=== PATIENT | female | born 1950 | race Caucasian/White ===

== ENCOUNTER 2016-09-14 14:26 | Emergency (ER) | payer MEDICARE, SELFPAY ==
[2016-09-14] MEDS ORDERED: Famotidine In NaCl 20 mg/50 ml Premix Bag ONE (14:49)
[2016-09-14] MEDS ORDERED: Ondansetron HCl/PF 4 MG/2 ML Vial ONE (14:49)
[2016-09-14 15:10] LABS: #Basophils 0.1 thou/uL (0.0-0.2); #Eosinphils 0.6 thou/uL (0.0-0.7); #Lymphocytes 2.3 thou/uL (1.20-3.40); #Monocytes 0.7 thou/uL (0.11-0.59); #Neutrophils 3.3 thou/uL (1.40-6.50); %Basophils 0.9 % (0.0-1.0); %Eosinophils 8.6 % (0.0-10.0); %Lymphocytes 33.1 % (21.0-51.0); %Monocytes 9.5 % (0.0-10.0); Hemoglobin 12.5 g/dL (12.0-16.0); Mean Corpuscular HGB CONC 33.2 g/dL (32.0-36.0); Mean Corpuscular Hemoglobin 32.3 pg (27.0-31.0); Mean Corpuscular Volume 97.4 fl (81.0-99.0); Mean Platelet Volume 7.2 fL (7.4-10.4); Platelet Count 258 thou/uL (130-400); RBC Distribution Width 12.9 % (11.5-14.5); Red Blood Cell (RBC) Count 3.87 mill/uL (4.20-5.40); White Blood Cell (WBC) Count 6.9 thou/uL (4.8-10.8)
[2016-09-14 15:30] LABS: CKMB 6.2 ng/mL (0-6.6); Troponin I Less than 0.010 ng/mL (< 0.028)
[2016-09-14 15:31] LABS: ALT (SGPT) 26 U/L (8-55); AST (SGOT) 31 U/L (5-34); Albumin 3.9 g/dL (3.4-4.8); Alkaline Phosphatase 77 U/L (40-150); Anion Gap 13 mmol/L (10-20); BUN (Urea Nitrogen) 13 mg/dL (9.8-20.1); Bilirubin, Total 0.2 mg/dL (0.2-1.2); Calc. Creatinine Clearance 0 mL/min (70-130); Carbon Dioxide 29 mmol/L (23-31); Chloride 105 mmol/L (98-107); Estimated GFR-MDRD 69; Globulin 2.9 g/dL (2.4-3.5); Glucose 115 mg/dL (80-115); Lipase 45 U/L (8-78); Potassium 3.6 mmol/L (3.5-5.1); Protein, Total 6.8 g/dL (6.0-8.3); Sodium 143 mmol/L (136-145)
[2016-09-14 15:55] LABS: Bilirubin Negative (Negative); Blood, Urine Negative (Negative); Clarity Clear (Clear); Glucose, Urine (Dipstick) Negative (Negative); Leukocyte Negative (Negative); Nitrite Negative (Negative); Protein, Urine (Dipstick) Negative (Neg-Trace)
== END 2016-09-14 16:22 | disposition home or self-care (01) ==
LOC: BURERS 14:26
DX: K29.00 Acute gastritis without bleeding (principal)
CPT/HCPCS: 80053; 81003; 82553; 83690; 84484; 85025; 96361; 96365; 96375; J2405

== ENCOUNTER 2018-01-27 14:33 | Emergency (ER) | payer MEDICARE ==
[2018-01-27] MEDS ORDERED: HYDROcodone/Acetaminophen 10/325 mg Tablet ONE (15:00)
[2018-01-27] MEDS ORDERED: Bupivacaine 0.5% 10 ML VIAL ONE (15:26)
--- NOTE | 2018-01-27 16:41 | RAD ---
LEFT WRIST THREE VIEWS: 01/27/2018 FINDINGS: An impacted fracture of the distal radius is present, with slight comminution of fragments. The dist al ulna appears intact. There is minimal angulation of the fracture. The carpal bones appear intact . IMPRESSION: Impacted fracture of the distal radius. POS: HOME
== END 2018-01-27 16:07 | disposition home or self-care (01) ==
LOC: BURERS 14:33
DX: S52.502A Unspecified fracture of the lower end of left radius, initial encounter for closed fracture (principal); W19.XXXA Unspecified fall, initial encounter
CPT/HCPCS: 25605; J3490

== ENCOUNTER → 2018-10-29 | Emergency (ER) | payer MEDICARE ==
[~2018-10-29] MED LIST: Fentanyl 100 MCG/2 ML VIAL ONE; Glycopyrrolate 0.4 MG/ 2 ML VIAL ONE; Lidocaine Viscous Sol 2% 15 ml UD Cup ONE; Mag-Al Plus 1200 MG/1200 MG/120 MG/30 ML UDCUP ONE; Ondansetron PF 4 MG/2 ML Vial ONE
[2018-10-29 20:48] LABS: Bilirubin Negative (Negative); Blood, Urine Trace (Negative); Clarity Clear (Clear); Glucose, Urine (Dipstick) Negative (Negative); Leukocyte Negative (Negative); Nitrite Negative (Negative); Protein, Urine (Dipstick) Trace mg/dL (Neg-Trace); Urobilinogen 0.2 mg/dL (Less than 2)
[2018-10-29 20:53] LABS: #Basophils 0.1 thou/uL (0.0-0.2); #Eosinphils 0.1 thou/uL (0.0-0.7); #Lymphocytes 3.1 thou/uL (1.20-3.40); #Monocytes 0.5 thou/uL (0.11-0.59); #Neutrophils 4.2 thou/uL (1.40-6.50); %Basophils 1.3 % (0.0-1.0); %Eosinophils 1.4 % (0.0-10.0); %Lymphocytes 38.2 % (21.0-51.0); %Monocytes 6.8 % (0.0-10.0); %Neutrophils 52.3 % (42.0-75.0); Hemoglobin 13.3 g/dL (12.0-16.0); Mean Corpuscular HGB CONC 32.4 g/dL (32.0-36.0); Mean Corpuscular Hemoglobin 31.5 pg (27.0-31.0); Mean Corpuscular Volume 97.2 fL (78.0-98.0); Mean Platelet Volume 6.6 fL (7.4-10.4); Platelet Count 296 thou/uL (130-400); RBC Distribution Width 12.6 % (11.5-14.5); Red Blood Cell (RBC) Count 4.22 mill/uL (4.20-5.40)
[2018-10-29 20:53] LABS: Bacteria/HPF None Seen HPF (None Seen); Broad Cast None Seen LPF (None Seen); Calcium Oxalate Crystals None Seen HPF (None Seen); Cellular Cast None Seen LPF (None Seen); Epithelial Cast None Seen LPF (None Seen); Fatty Cast None Seen LPF (None Seen); Mucous/LPF None Seen LPF (<2+); Other Casts None Seen LPF (None Seen); Oval Fat Bodies/HPF None Seen HPF (None Seen); RBC/HPF 0-3 HPF (0-3); Red Blood Cell Cast None Seen LPF (None Seen); Renal Epithelial None Seen HPF (None Seen); Sperm/HPF None Seen HPF (None Seen); Squamous Epithelial None Seen HPF (0-3); Transitional Epithelial None Seen HPF (None Seen); Trichomonas/HPF None Seen HPF (None Seen); Triple Phosphate Crystal None Seen HPF (None Seen); Unclassified Crystals None Seen HPF (None Seen); WBC/HPF None Seen HPF (0-3); Waxy Cast None Seen LPF (None Seen); White Blood Cell Cast None Seen LPF (None Seen); Yeast-Budding None Seen HPF (None Seen); Yeast-Hyphae None Seen HPF (None Seen)
[2018-10-29 22:21] LABS: ALT (SGPT) 33 U/L (8-55); AST (SGOT) 43 U/L (5-34); Albumin 4.3 g/dL (3.4-4.8); Alkaline Phosphatase 77 U/L (40-150); Anion Gap 15 mmol/L (10-20); BUN (Urea Nitrogen) 15 mg/dL (9.8-20.1); Bilirubin, Total 0.7 mg/dL (0.2-1.2); Calc. Creatinine Clearance 0 mL/min (70-130); Calcium 9.6 mg/dL (7.8-10.44); Carbon Dioxide 24 mmol/L (23-31); Chloride 103 mmol/L (98-107); Estimated GFR-MDRD 70; Globulin 3.1 g/dL (2.4-3.5); Glucose 120 mg/dL (80-115); Lipase 376 U/L (8-78); Potassium 3.2 mmol/L (3.5-5.1); Protein, Total 7.4 g/dL (6.0-8.3); Sodium 139 mmol/L (136-145)
== END ==
LOC: BURERS 20:13
DX: K85.90 Acute pancreatitis without necrosis or infection, unspecified (principal)
CPT/HCPCS: 80053; 81003; 81015; 83690; 84484; 85025; 94760; 96361; 96365; 96367; 96375; 96376; J2405; J3010

== ENCOUNTER 2019-05-26 10:37 | Emergency (ER) | payer MEDICARE | END 2019-05-26 11:23 | disposition home or self-care (01) | LOC: BURERS 10:37 | DX: J30.9 Allergic rhinitis, unspecified (principal); G30.9 Alzheimer's disease, unspecified; E78.5 Hyperlipidemia, unspecified | CPT/HCPCS: 99283 ==

== ENCOUNTER 2019-07-22 09:53 | Emergency (ER) | payer MEDICARE, OTHER ==
[2019-07-22] MEDS ORDERED: Ketorolac Tromethamine 30 MG/ML VIAL ONE (10:21)
[2019-07-22] MEDS ORDERED: Famotidine In NaCl 20 mg/50 ml Premix Bag ONE (10:21)
[2019-07-22] MEDS ORDERED: Ondansetron PF 4 MG/2 ML Vial ONE (10:21)
[2019-07-22] MEDS ORDERED: Mag-Al Plus 1200 MG/1200 MG/120 MG/30 ML UDCUP ONE (10:27)
[2019-07-22] MEDS ORDERED: Lidocaine Viscous Sol 2% 15 ml UD Cup ONE (10:27)
[2019-07-22 10:31] LABS: #Basophils 0.1 thou/uL (0.0-0.2); #Eosinphils 0.1 thou/uL (0.0-0.7); #Lymphocytes 2.1 thou/uL (1.20-3.40); #Monocytes 0.4 thou/uL (0.11-0.59); #Neutrophils 4.6 thou/uL (1.40-6.50); %Basophils 1.1 % (0.0-1.0); %Eosinophils 1.2 % (0.0-10.0); %Lymphocytes 29.2 % (21.0-51.0); %Monocytes 5.1 % (0.0-10.0); %Neutrophils 63.5 % (42.0-75.0); Hemoglobin 12.8 g/dL (12.0-16.0); Mean Corpuscular HGB CONC 31.4 g/dL (32.0-36.0); Mean Corpuscular Hemoglobin 30.7 pg (27.0-31.0); Mean Corpuscular Volume 97.5 fL (78.0-98.0); Mean Platelet Volume 7.1 fL (7.4-10.4); Platelet Count 269 thou/uL (130-400); RBC Distribution Width 13.5 % (11.5-14.5); Red Blood Cell (RBC) Count 4.17 mill/uL (4.20-5.40); White Blood Cell (WBC) Count 7.3 thou/uL (4.8-10.8)
[2019-07-22 10:45] LABS: ALT (SGPT) 20 U/L (8-55); AST (SGOT) 23 U/L (5-34); Albumin 4.5 g/dL (3.4-4.8); Alkaline Phosphatase 93 U/L (40-110); Anion Gap 17 mmol/L (10-20); BUN (Urea Nitrogen) 14 mg/dL (9.8-20.1); Bilirubin, Total 0.5 mg/dL (0.2-1.2); Calc. Creatinine Clearance 0 mL/min (70-130); Calcium 9.8 mg/dL (7.8-10.44); Carbon Dioxide 24 mmol/L (23-31); Chloride 101 mmol/L (98-107); Estimated GFR-MDRD 68; Globulin 3.3 g/dL (2.4-3.5); Glucose 129 mg/dL (80-115); Lipase 65 U/L (8-78); Potassium 3.9 mmol/L (3.5-5.1); Protein, Total 7.8 g/dL (6.0-8.3); Sodium 138 mmol/L (136-145)
--- NOTE | 2019-07-22 10:54 | CT ---
CT OF THE BRAIN WITHOUT CONTRAST: DATE: 07/22/2019. FINDINGS: A NONCONTRAST ct WAS DONE FOR EVALUATION OF HEADACHE. No prior films were available for comparison. The ventricles are normal in size in size for age. Several areas of patchy hypolucency are seen in t he deep white matter suggestive of chronic microvascular ischemic change. An acute tiny infarct was missed against this background. There are no findings of a territorial stroke. Basal ganglia calcif ications are prominent in this patient. There is no sign of mass, edema, or bleeding. The visible p aranasal sinuses and mastoid air cells are clear. IMPRESSION: Chronic ischemic changes, but no acute intracranial findings. Preliminary report called to Dr. Wallace at 1033 on 07/22/2019. CODE CR POS: HOME
== END 2019-07-22 11:06 | disposition home or self-care (01) ==
LOC: BURERS 09:53
DX: R11.2 Nausea with vomiting, unspecified (principal); R51 Headache; I10 Essential (primary) hypertension; E78.5 Hyperlipidemia, unspecified; K21.9 Gastro-esophageal reflux disease without esophagitis; G30.9 Alzheimer's disease, unspecified; F02.80 Dementia in other diseases classified elsewhere, unspecified severity, without behavioral disturbance, psychotic disturbance, mood disturbance, and anxiety
CPT/HCPCS: 70450; 80053; 83605; 83690; 84484; 85025; 93005; 96374; 96375; J1885; J2405

== ENCOUNTER 2019-07-28 14:32 | Emergency (ER) | payer MEDICARE, OTHER ==
[2019-07-28] MEDS ORDERED: Lidocaine 1% PF 5 ML VIAL ONE (14:53)
--- NOTE | 2019-07-28 15:58 | RAD ---
RIGHT FOREARM THREE VIEWS: 07/28/19 A laceration is seen at the junction of the middle and distal thirds of the forearm, medial side. Whi le there are a few tiny specks seen around the area on the film, these are largely visible elsewhere as well, indicating that they are most likely film artifact. The third view of the series taken from the side shows absolutely no signs of foreign body at the laceration site. This further reinforces th at the findings on the other two films are likely to be film artifact. IMPRESSION: No opaque foreign body of substantial size seen. Some foreign bodies can be invisible on plain radiog raphs. At the very most, there might be a little bit of contamination of the wound from specks of gla ss, but no large piece is visible. Film artifact most likely explains what is seen on two of the view s. POS: HOME
== END 2019-07-28 15:40 | disposition home or self-care (01) ==
LOC: BURERS 14:32
DX: S51.811A Laceration without foreign body of right forearm, initial encounter (principal); I10 Essential (primary) hypertension; E78.5 Hyperlipidemia, unspecified; K21.9 Gastro-esophageal reflux disease without esophagitis; G30.9 Alzheimer's disease, unspecified; F02.80 Dementia in other diseases classified elsewhere, unspecified severity, without behavioral disturbance, psychotic disturbance, mood disturbance, and anxiety; W25.XXXA Contact with sharp glass, initial encounter
CPT/HCPCS: 12001; 73090; 99283; J2001

== ENCOUNTER 2019-09-10 17:41 | Emergency (ER) | payer MEDICARE, OTHER ==
[2019-09-10] MEDS ORDERED: Ondansetron PF 4 MG/2 ML Vial ONE (18:28)
[2019-09-10] MEDS ORDERED: Nitroglycerin 0.4 MG TAB 1 EACH ONE (18:54)
[2019-09-10 19:00] LABS: #Basophils 0.1 thou/uL (0.0-0.2); #Eosinphils 0.3 thou/uL (0.0-0.7); #Lymphocytes 2.2 thou/uL (1.20-3.40); #Monocytes 0.5 thou/uL (0.11-0.59); #Neutrophils 4.2 thou/uL (1.40-6.50); %Basophils 1.4 % (0.0-1.0); %Eosinophils 4.3 % (0.0-10.0); %Lymphocytes 30.5 % (21.0-51.0); %Monocytes 6.5 % (0.0-10.0); %Neutrophils 57.3 % (42.0-75.0); Hemoglobin 12.1 g/dL (12.0-16.0); Mean Corpuscular HGB CONC 30.5 g/dL (32.0-36.0); Mean Corpuscular Hemoglobin 30.3 pg (27.0-31.0); Mean Corpuscular Volume 99.5 fL (78.0-98.0); Mean Platelet Volume 7.5 fL (7.4-10.4); Platelet Count 280 thou/uL (130-400); RBC Distribution Width 13.2 % (11.5-14.5); Red Blood Cell (RBC) Count 3.99 mill/uL (4.20-5.40); White Blood Cell (WBC) Count 7.3 thou/uL (4.8-10.8)
[2019-09-10] MEDS ORDERED: Sodium Chloride 0.9% 100 ML ONE (19:05)
[2019-09-10] MEDS ORDERED: cefTRIAXone\\ROCEPHIN 2 GM VIAL ONE (19:05)
[2019-09-10] MEDS ORDERED: Azithromycin 500 MG VIAL ONE (19:05)
[2019-09-10] MEDS ORDERED: Aspirin Chewable 81 MG TAB ONE (19:14)
[2019-09-10 19:15] LABS: Bilirubin Small (Negative); Blood, Urine Negative (Negative); Clarity Clear (Clear); Glucose, Urine (Dipstick) Negative (Negative); Leukocyte Trace (Negative); Nitrite Negative (Negative); Protein, Urine (Dipstick) Negative (Neg-Trace); Urobilinogen 0.2 mg/dL (Less than 2)
[2019-09-10 19:17] LABS: Base Excess-Venous 1.2 mmol/L (-2.0 to 3.0); Bicarbonate (HCO3v) 27.6 mmol/L (22.0-28.0); CO2 Tension (PvCO2) 50.1 mmHg (40.0-50.0); Calcium, Ionized 1.19 mmol/L (See Comments:); Chloride 102 mmol/L (98-107); Hemoglobin - Calc 12.9 g/dL (12.0-16.0); Potassium 3.2 mmol/L (3.5-5.1); Sodium 142 mmol/L (138-145); T. Carbon Dioxide 29.1 mmol/L (22.0-28.0); vO2 Saturation-calc 78.1 % (60.0-85.0)
[2019-09-10 19:49] LABS: Bacteria/HPF Rare-Few HPF (None Seen); RBC/HPF 0-3 HPF (0-3); Squamous Epithelial 0-3 HPF (0-3); WBC/HPF 0-3 HPF (0-3)
--- NOTE | 2019-09-10 20:33 | RAD ---
PORTABLE CHEST: Date: 09-10-2019 An AP portable film at 1851 is compared with the prior study dated 11-17-15. FINDINGS: The film is centered somewhat low. This portable study at 1851 shows some haziness in the lung bases, but it is not clear if the patient has taken a deep breath. There are no effusions. Heart size is no rmal. There is no vascular congestion. See follow up study. IMPRESSION: Basilar haziness, but possibly an expiratory film. POS: HOME
--- NOTE | 2019-09-11 07:27 | RAD ---
PORTABLE CHEST: Date: 09-10-2019 A follow up film at 1913 shows the lungs are clear. The left basilar haziness seen before has disappe ared with a better degree of inspiration. There is still a little increase in markings just below the right hilum, but not enough to confidently diagnose an infiltrate as of yet. There are no effusions. The upper lobes are clear. The heart is normal in size. IMPRESSION: No definitive acute finding. POS: HOME
[2019-09-11 10:21] LABS: SARS-CoV-2 MS2 Positive; SARS-CoV-2 N Gene Negative; SARS-CoV-2 S Gene Negative; SARS-CoV-2 orf1ab Negative
== END 2019-09-10 19:47 | disposition short-term general hospital (02) ==
LOC: BURERS 17:41
DX: R07.89 Other chest pain (principal); J18.9 Pneumonia, unspecified organism; R11.2 Nausea with vomiting, unspecified; R19.7 Diarrhea, unspecified; G30.9 Alzheimer's disease, unspecified; F02.80 Dementia in other diseases classified elsewhere, unspecified severity, without behavioral disturbance, psychotic disturbance, mood disturbance, and anxiety; E78.5 Hyperlipidemia, unspecified; I10 Essential (primary) hypertension; K21.9 Gastro-esophageal reflux disease without esophagitis; Z79.899 Other long term (current) drug therapy; Z20.828 Contact with and (suspected) exposure to other viral communicable diseases
CPT/HCPCS: 71045; 82330; 82435; 82803; 84132; 84295; 84484; 85014; 85025; 87040; 87086; 87804 ×2; 93005; 96361; 96365; 96374; 96375; 99285; U0003; 81003; 81015; 87635; J0456; J0696; J2405; J3490

== ENCOUNTER 2020-01-13 10:31 | Inpatient (IN) | payer MEDICARE, OTHER ==
[2020-01-13] MEDS ORDERED: Ondansetron PF 4 MG/2 ML Vial ONE (11:03)
[2020-01-13 11:04] LABS: #Basophils 0.1 thou/uL (0.0-0.2); #Eosinphils 0.1 thou/uL (0.0-0.7); #Monocytes 0.6 thou/uL (0.11-0.59); #Neutrophils 4.4 thou/uL (1.40-6.50); %Basophils 0.8 % (0.0-1.0); %Eosinophils 1.8 % (0.0-10.0); %Lymphocytes 27.8 % (21.0-51.0); %Monocytes 8.3 % (0.0-10.0); %Neutrophils 61.3 % (42.0-75.0); Hemoglobin 11.3 g/dL (12.0-16.0); Mean Corpuscular HGB CONC 30.3 g/dL (32.0-36.0); Mean Corpuscular Hemoglobin 30.9 pg (27.0-31.0); Mean Platelet Volume 6.7 fL (7.4-10.4); Platelet Count 246 thou/uL (130-400); RBC Distribution Width 13.7 % (11.5-14.5); Red Blood Cell (RBC) Count 3.65 mill/uL (4.20-5.40); White Blood Cell (WBC) Count 7.2 thou/uL (4.8-10.8)
[2020-01-13] MEDS ORDERED: Milk Of Magnesia 30 ML UDCUP ONE (11:04)
[2020-01-13] MEDS ORDERED: Lidocaine Viscous Sol 2% 15 ml UD Cup ONE (11:04)
[2020-01-13] MEDS ORDERED: Famotidine In NaCl 20 mg/50 ml Premix Bag ONE (11:04)
[2020-01-13 11:20] LABS: ALT (SGPT) 28 U/L (8-55); AST (SGOT) 16 U/L (5-34); Albumin 3.7 g/dL (3.4-4.8); Alkaline Phosphatase 61 U/L (40-110); Anion Gap 13 mmol/L (10-20); BUN (Urea Nitrogen) 12 mg/dL (9.8-20.1); Bilirubin, Total 0.6 mg/dL (0.2-1.2); Calc. Creatinine Clearance 0 mL/min (70-130); Carbon Dioxide 28 mmol/L (23-31); Chloride 104 mmol/L (98-107); Estimated GFR-MDRD 65; Globulin 2.4 g/dL (2.4-3.5); Glucose 121 mg/dL (80-115); Lipase 375 U/L (8-78); Potassium 3.1 mmol/L (3.5-5.1); Protein, Total 6.1 g/dL (6.0-8.3); Sodium 142 mmol/L (136-145)
[2020-01-13] MEDS ORDERED: Morphine 4 MG/ML VIAL ONE (11:48)
[2020-01-13] MEDS ORDERED: Potassium Chloride 20 MEQ/100 ML PREMIX BAG ONE (11:54)
[2020-01-13 12:36] LABS: Bilirubin Negative (Negative); Blood, Urine Negative (Negative); Clarity Clear (Clear); Glucose, Urine (Dipstick) Negative (Negative); Ketone, Urine Negative (Negative); Leukocyte Trace (Negative); Nitrite Negative (Negative); Protein, Urine (Dipstick) Negative (Neg-Trace); Specific Gravity, Urine 1.015 (1.005-1.030); Urobilinogen 0.2 mg/dL (Less than 2); pH, Urine 8.5 (5.0-9.0)
[2020-01-13] MEDS ORDERED: Iopamidol 370 76% 100 ML VIAL ONE (12:37)
[2020-01-13] MEDS ORDERED: Lisinopril 20 MG TAB ONE (12:38)
[2020-01-13 12:44] LABS: Bacteria/HPF Rare-Few HPF (None Seen); RBC/HPF None Seen HPF (0-3); Squamous Epithelial 0-3 HPF (0-3); WBC/HPF 0-3 HPF (0-3)
--- NOTE | 2020-01-13 12:51 | CT ---
CT ABDOMEN AND PELVIS WITH CONTRAST: 01/13/20 TECHNIQUE: A spiral CT of the abdomen and pelvis was done with IV contrast and compared with a prior study dated 10/30/2018. FINDINGS: The prior exam showed a mildly (3 mm) dilated pancreatic duct without obvious signs of mass or ductal calcification. Again seen on today's exam is dilation of the main pancreatic duct, but it has doubled in size, measu ring 6 to 7 mm wide today. The dilation is most prominent in the neck and head of the pancreas and re ines that way to its termination at the second part of the duodenum. No gross mass or intraductal ca lcification is seen as an explanation. The patient's common bile duct is visible and is normal in siz e, measuring 5 to 6 mm in width. It appears to enter the duodenum just superior to the pancreatic janet t. There is no intrahepatic ductal dilation. No stones are seen in the gallbladder, nor is there thic kening around the gallbladder. The liver, spleen, kidneys and abdominal aorta show no acute findings. There may be a minimal 8 mm no dule in the left adrenal gland, which, in retrospect, was present and has not changed at all over desiree e. Its current significance is doubtful. Regarding the pancreas, there really is not significant stre aking around it at the moment to allow a CT diagnosis of acute pancreatitis, though the patient's lab s may indicate otherwise. The bowel shows no dilation to suggest obstruction, nor is there worrisome wall thickening. The appen pat appears normal. Some loops of bowel have some fluid in them, such as the second part of the duode num and a few loops of jejunum but none are dilated. There is no free air or free fluid. An incidenta l finding is a rounded calcification just anterior to the cecum, which was present before. CT of the pelvis shows no adnexal masses, inflammatory changes or free fluid. IMPRESSION: 1. Dilation of the main pancreatic duct (6 to 7 mm wide) from its termination at the second part of t he duodenum through the head and neck. This represents roughly a doubling in width since the 2019 rubio dy. The cause for this dilation is not apparent on this scan. Endoscopic retrograde cholangiopancreat ography might be considered to look for any intraductal masses or pathology to explain the findings. 2. No evidence of dilation of the biliary system. The common bile duct appears to enter the duodenum separately from the main pancreatic duct and just above it. 3. Probable 8 mm left adrenal mass. Significance felt to be quite low at this point in time. See nick dutta. Findings discussed with Dr. Wallace at 1213 hours on 01/13/20. CODE CR POS: HOME
[2020-01-13] MEDS: Sodium Chloride 0.9% 1,000 ML IV SCH ×2 (13:30→21:27)
[2020-01-13] MEDS ORDERED: cloNIDine 0.1mg/24 Hour PATCH TD SCH ×2 (14:15→20:15)
[2020-01-13 14:36] VITALS: BMI 20.2
--- NOTE | 2020-01-13 16:08 | HP ---
CHIEF COMPLAINT: Abdominal pain. HISTORY OF PRESENT ILLNESS: The patient is an extremely pleasant 69-year-old female with a history of one episode of pancreatitis about a year ago. The patient reports that she was doing fine until approximately three days ago when she began having some increased abdominal discomfort mainly in the mid epigastric area with nausea, anorexia, and decreased appetite. She had one episode of emesis of clear fluid. No further emesis since then. She has been mainly drinking water in the last 36 hours, which she says slightly helped her symptoms. Because her symptoms continued to not improve, she presents to the emergency room for evaluation of abdominal pain. The patient reports no other significant abnormality. She has had some progressive left knee pain for which she uses a cane and a knee brace, which is not acute. The patient is extremely pleasant, but very poor historian. The findings from the previous episode of pancreatitis were determined from her past medical records. She did not report any previous episodes of pancreatitis. The patient denies any history of significant alcohol abuse or excessive alcohol use. She does have a history of hypercholesterolemia. Review of the chart records when her previous episode of pancreatitis, she had a dilated pancreatic duct. Apparently, she was evaluated on outpatient basis and may have had ultrasound-guided or ERCP with intraductal ultrasound, which apparently was normal per 's records, although they do not have obvious documentation of this. If this was done, it was not done the [facility] since we have no records. PAST MEDICAL HISTORY: Significant for: 1. Hypertension. 2. History of one episode of pancreatitis as reported in HPI. 3. History of Alzheimer disease. 4. History of hyperlipidemia. 5. History of peptic ulcer disease with gastroesophageal reflux disease. PAST SURGICAL HISTORY: No significant past surgical history. SOCIAL HISTORY: The patient denies alcohol use or drug use. No smoking history. She is from [facility]. She lives with her [place] many years. ALLERGIES: THE PATIENT REPORTS NO SIGNIFICANT ALLERGIES. MEDICATIONS: 1. Atorvastatin 20 mg daily. 2. Loratadine 10 mg daily. 3. Pantoprazole 40 mg daily. 4. Tramadol 50 mg q.12 hours p.r.n. pain. 5. Aricept 10 mg at bedtime. 6. Meloxicam 50 mg daily. 7. Lisinopril 10 mg daily. 8. Sertraline 25 mg daily. 9. Gabapentin 300 mg p.o. at bedtime. REVIEW OF SYSTEMS: The patient denies any URI-like symptoms. No recent visual changes. No significant weight loss or weight gain. The patient denies rashes. The patient reports no chest pain or shortness of breath. No fevers, chills, or night sweats. She does have nausea with abdominal pain as in HPI with one episode of emesis. The patient reports normal bowel movements. Her last bowel movement was two days ago. The patient denies dysuria, hematuria, or change in urinary frequency. The patient does report some increased hip discomfort and left knee pain for which she uses a cane. The patient also reports headache over the last few days. PHYSICAL EXAMINATION: VITAL SIGNS: Blood pressure was 192/102, respiratory rate was 16, and pulse was 82. The patient was afebrile. HEENT: Atraumatic and normocephalic. Extraocular movements are intact. Pupils are equal, round, and reactive to light and accommodations. Oropharynx, mucous membranes are moist. No exudate, discharge, or lesions. NECK: Supple. No mass palpated. No bruits auscultated. CHEST: Clear to auscultation bilaterally without rales or wheezes. HEART: Regular rate and rhythm without murmurs, rubs, or gallops. ABDOMEN: Soft. Hyperactive bowel sounds in all four quadrants. Tenderness in the mid and upper epigastrium to touch. There is no significant right upper quadrant tenderness and no lower quadrant tenderness as well. There is no CVA tenderness. EXTREMITIES: No edema was noted. No ulcers or lesions were noted. LABORATORY DATA: Labs were significant for CT scan of the abdomen and pelvis, which showed dilatation of main pancreatic duct 6 to 7 mm wide, which was twice the diameter of the previous pancreatic duct on CAT scan in a year ago. There was no obvious etiology for the dilatation. There was no evidence of dilatation of the biliary system, and there was a benign-appearing left adrenal mass 7 mm in size. Laboratory otherwise was significant for a CBC with a white count 7200 with hemoglobin and hematocrit of 11.3 and 37.2. Chemistry significant for potassium at 3.1, glucose of 121, and lipase of 375. Normal troponin of 0.017. Urinalysis showed trace leukocyte esterase only. ASSESSMENT AND PLAN: 1. Pancreatitis, recurrent. Exact etiology of the pancreatitis is unknown. The patient apparently had a workup a year ago. We will try to obtain records from [facility]. For now, we will make the patient n.p.o. We will give her IV morphine as needed for pain, plus IV pantoprazole. We will repeat lipase and amylase in the morning and continue IV fluids of normal saline. The patient was given 40 mEq of potassium chloride IV to the emergency room. We will continue to follow her potassium levels and will probably keep her on potassium IV. 2. Hypertension. Blood pressure is pretty elevated. She was given her lisinopril 20 mg routine dose in the emergency room. Since she is n.p.o., we will start her on a clonidine patch 0.1 and follow her blood pressure. 3. Hypercholesterolemia. This may be the cause of the patient's pancreatitis. We will hold her medications for now. 4. History of Alzheimer's with dementia. We will hold her Aricept. At this time, the patient is cooperative and will evaluate for any signs of risk for falls or sundowning. 5. Disposition. The patient will likely be in hospital for at least two midnights. She will be n.p.o. for at least 24 hours, likely longer and we will slowly advance her diet as tolerated. She will continue to need pain management and likely will need further workup as an outpatient basis for her recurrent pancreatitis. Job ID: [id number]
[2020-01-13] MEDS ORDERED: cloNIDine 0.1 MG TAB PO SCH (16:15)
[2020-01-13] MEDS: Morphine 4 MG/ML VIAL SLOW IVP PRN (17:59)
[2020-01-13] MEDS: Ondansetron PF 4 MG/2 ML Vial IVP PRN (19:05)
[2020-01-13] MEDS: Pantoprazole 40 MG VIAL IVP SCH (20:40)
[2020-01-14] MEDS: Sodium Chloride 0.9% 1,000 ML IV SCH ×2 (05:17→13:07)
[2020-01-14 05:36] LABS: #Basophils 0.1 thou/uL (0.0-0.2); #Eosinphils 0.1 thou/uL (0.0-0.7); #Lymphocytes 2.2 thou/uL (1.20-3.40); #Monocytes 0.5 thou/uL (0.11-0.59); #Neutrophils 4.6 thou/uL (1.40-6.50); %Eosinophils 0.9 % (0.0-10.0); %Lymphocytes 29.4 % (21.0-51.0); %Monocytes 6.7 % (0.0-10.0); Hemoglobin 11.7 g/dL (12.0-16.0); Mean Corpuscular HGB CONC 30.4 g/dL (32.0-36.0); Mean Corpuscular Hemoglobin 31.1 pg (27.0-31.0); Mean Platelet Volume 7.3 fL (7.4-10.4); Platelet Count 226 thou/uL (130-400); RBC Distribution Width 13.6 % (11.5-14.5); Red Blood Cell (RBC) Count 3.75 mill/uL (4.20-5.40); White Blood Cell (WBC) Count 7.4 thou/uL (4.8-10.8)
[2020-01-14 05:44] LABS: ALT (SGPT) 35 U/L (8-55); AST (SGOT) 21 U/L (5-34); Albumin 3.8 g/dL (3.4-4.8); Alkaline Phosphatase 74 U/L (40-110); Anion Gap 15 mmol/L (10-20); BUN (Urea Nitrogen) 6 mg/dL (9.8-20.1); Bilirubin, Total 0.7 mg/dL (0.2-1.2); Calc. Creatinine Clearance 52 mL/min (70-130); Calcium 8.4 mg/dL (7.8-10.44); Carbon Dioxide 23 mmol/L (23-31); Chloride 108 mmol/L (98-107); Estimated GFR-MDRD 75; Globulin 2.4 g/dL (2.4-3.5); Glucose 120 mg/dL (80-115); Lipase 32 U/L (8-78); Potassium 3.5 mmol/L (3.5-5.1); Protein, Total 6.2 g/dL (6.0-8.3); Sodium 142 mmol/L (136-145)
[2020-01-14] MEDS: Morphine 4 MG/ML VIAL SLOW IVP PRN ×3 (08:34→20:30)
[2020-01-14] MEDS: Pantoprazole 40 MG VIAL IVP SCH (08:39)
[2020-01-14] MEDS ORDERED: Lisinopril 10 MG TAB PO SCH (14:30)
[2020-01-14] MEDS ORDERED: Amlodipine 5 MG TAB PO SCH ×2 (14:30→19:15)
[2020-01-14] MEDS: Ondansetron ODT 4 MG TAB PO PRN (14:40)
[2020-01-14 17:54] LABS: SARS-CoV-2 MS2 Positive; SARS-CoV-2 N Gene Negative; SARS-CoV-2 S Gene Negative; SARS-CoV-2 by NAA Not Detected (NotDetected); SARS-CoV-2 orf1ab Negative
[2020-01-15] MEDS: Sodium Chloride 0.9% 1,000 ML IV SCH ×3 (01:17→17:22)
[2020-01-15] MEDS: Pantoprazole 40 MG VIAL IVP SCH ×3 (01:17→20:39)
[2020-01-15] MEDS: Lisinopril 10 MG TAB PO SCH (07:42)
[2020-01-15] MEDS: Amlodipine 10 MG TAB PO SCH (07:42)
[2020-01-15] MEDS: Ondansetron ODT 4 MG TAB PO PRN (07:43)
[2020-01-15] MEDS: Morphine 4 MG/ML VIAL SLOW IVP PRN ×3 (07:44→20:40)
[2020-01-15] MEDS ORDERED: Amlodipine 5 MG TAB PO SCH (09:00)
[2020-01-15] MEDS: Acetaminophen 650 MG Suppository PR PRN (12:23)
[2020-01-15] MEDS: Ondansetron PF 4 MG/2 ML Vial IVP PRN (14:14)
[2020-01-16] MEDS: Sodium Chloride 0.9% 1,000 ML IV SCH ×2 (03:08→16:22)
[2020-01-16 05:08] LABS: #Basophils 0.1 thou/uL (0.0-0.2); #Eosinphils 0.1 thou/uL (0.0-0.7); #Lymphocytes 1.7 thou/uL (1.20-3.40); #Monocytes 0.5 thou/uL (0.11-0.59); %Basophils 1.1 % (0.0-1.0); %Eosinophils 0.8 % (0.0-10.0); %Monocytes 6.4 % (0.0-10.0); %Neutrophils 68.7 % (42.0-75.0); Hemoglobin 10.9 g/dL (12.0-16.0); Mean Corpuscular HGB CONC 31.7 g/dL (32.0-36.0); Mean Corpuscular Hemoglobin 31.7 pg (27.0-31.0); Mean Platelet Volume 6.8 fL (7.4-10.4); Platelet Count 209 thou/uL (130-400); RBC Distribution Width 13.7 % (11.5-14.5); Red Blood Cell (RBC) Count 3.45 mill/uL (4.20-5.40); White Blood Cell (WBC) Count 7.2 thou/uL (4.8-10.8)
[2020-01-16 05:26] LABS: ALT (SGPT) 27 U/L (8-55); AST (SGOT) 24 U/L (5-34); Albumin 3.2 g/dL (3.4-4.8); Alkaline Phosphatase 62 U/L (40-110); Anion Gap 18 mmol/L (10-20); BUN (Urea Nitrogen) 12 mg/dL (9.8-20.1); Bilirubin, Total 0.8 mg/dL (0.2-1.2); Calc. Creatinine Clearance 55 mL/min (70-130); Calcium 7.7 mg/dL (7.8-10.44); Carbon Dioxide 15 mmol/L (23-31); Chloride 112 mmol/L (98-107); Estimated GFR-MDRD 79; Globulin 2.1 g/dL (2.4-3.5); Glucose 65 mg/dL (80-115); Potassium 3.4 mmol/L (3.5-5.1); Protein, Total 5.3 g/dL (6.0-8.3); Sodium 142 mmol/L (136-145)
[2020-01-16] MEDS: Lisinopril 10 MG TAB PO SCH (09:26)
[2020-01-16] MEDS: Amlodipine 10 MG TAB PO SCH (09:26)
[2020-01-16] MEDS: Pantoprazole 40 MG VIAL IVP SCH (09:28)
[2020-01-16] MEDS: Acetaminophen 650 MG Suppository PR PRN (09:45)
[2020-01-16 16:59] LABS: #Basophils 0.1 thou/uL (0.0-0.2); #Eosinphils 0.1 thou/uL (0.0-0.7); #Lymphocytes 1.7 thou/uL (1.20-3.40); #Monocytes 0.5 thou/uL (0.11-0.59); #Neutrophils 4.8 thou/uL (1.40-6.50); %Eosinophils 0.7 % (0.0-10.0); %Lymphocytes 24.2 % (21.0-51.0); %Monocytes 6.8 % (0.0-10.0); %Neutrophils 67.2 % (42.0-75.0); Hemoglobin 10.8 g/dL (12.0-16.0); Mean Corpuscular HGB CONC 30.5 g/dL (32.0-36.0); Mean Corpuscular Hemoglobin 30.6 pg (27.0-31.0); Mean Platelet Volume 6.6 fL (7.4-10.4); Platelet Count 217 thou/uL (130-400); RBC Distribution Width 13.6 % (11.5-14.5); Red Blood Cell (RBC) Count 3.53 mill/uL (4.20-5.40); White Blood Cell (WBC) Count 7.1 thou/uL (4.8-10.8)
[2020-01-16 17:16] LABS: ALT (SGPT) 32 U/L (8-55); AST (SGOT) 28 U/L (5-34); Albumin 3.4 g/dL (3.4-4.8); Alkaline Phosphatase 64 U/L (40-110); Anion Gap 14 mmol/L (10-20); BUN (Urea Nitrogen) 11 mg/dL (9.8-20.1); Bilirubin, Total 0.9 mg/dL (0.2-1.2); Calc. Creatinine Clearance 55 mL/min (70-130); Calcium 7.9 mg/dL (7.8-10.44); Carbon Dioxide 17 mmol/L (23-31); Chloride 108 mmol/L (98-107); Estimated GFR-MDRD 79; Globulin 2.1 g/dL (2.4-3.5); Glucose 170 mg/dL (80-115); Potassium 3.3 mmol/L (3.5-5.1); Protein, Total 5.5 g/dL (6.0-8.3); Sodium 136 mmol/L (136-145)
[2020-01-16 18:06] VITALS: BP 150/70; TEMP 97.8
[2020-01-16] MEDS ORDERED: Potassium Chloride 10 MEQ TAB PO SCH (18:30)
== END 2020-01-16 18:15 | disposition home or self-care (01) | DRG 440 ==
LOC: BURERS 10:31 → BURMED 12:30 → OBSVTOIN 15:15
PROVIDERS: ADMIT Family Medicine; ATTEND Family Medicine
DX: K86.1 Other chronic pancreatitis (principal); I10 Essential (primary) hypertension; E78.00 Pure hypercholesterolemia, unspecified; G30.9 Alzheimer's disease, unspecified; F02.80 Dementia in other diseases classified elsewhere, unspecified severity, without behavioral disturbance, psychotic disturbance, mood disturbance, and anxiety; E78.5 Hyperlipidemia, unspecified; Z20.828 Contact with and (suspected) exposure to other viral communicable diseases; K21.9 Gastro-esophageal reflux disease without esophagitis; F32.9 Major depressive disorder, single episode, unspecified; Z87.11 Personal history of peptic ulcer disease
CPT/HCPCS: 36415; 74177; 80053; 81003; 81015; 82150; 83690; 84484; 85025; 87635; 93005; 96365; 96375; C9113; G0378; J2270; J2405; J3480; Q0162; Q9967; U0003

== ENCOUNTER 2020-01-31 16:39 | Inpatient (IN) | payer MEDICARE, OTHER ==
[2020-01-31] MEDS ORDERED: Ondansetron PF 4 MG/2 ML Vial ONE (17:09)
[2020-01-31] MEDS ORDERED: Famotidine In NaCl 20 mg/50 ml Premix Bag ONE (17:09)
[2020-01-31] MEDS ORDERED: Morphine 2 MG/ML SYRINGE ONE ×3 (17:09→21:14)
[2020-01-31 17:22] LABS: #Basophils 0.1 thou/uL (0.0-0.2); #Monocytes 0.5 thou/uL (0.11-0.59); #Neutrophils 3.9 thou/uL (1.40-6.50); %Basophils 0.9 % (0.0-1.0); %Eosinophils 0.4 % (0.0-10.0); %Lymphocytes 31.1 % (21.0-51.0); %Neutrophils 59.6 % (42.0-75.0); Hemoglobin 11.7 g/dL (12.0-16.0); Mean Corpuscular HGB CONC 30.9 g/dL (32.0-36.0); Mean Corpuscular Hemoglobin 31.2 pg (27.0-31.0); Mean Platelet Volume 6.1 fL (7.4-10.4); Platelet Count 262 thou/uL (130-400); Red Blood Cell (RBC) Count 3.75 mill/uL (4.20-5.40); White Blood Cell (WBC) Count 6.5 thou/uL (4.8-10.8)
[2020-01-31 17:38] LABS: ALT (SGPT) 24 U/L (8-55); AST (SGOT) 22 U/L (5-34); Albumin 4.1 g/dL (3.4-4.8); Alkaline Phosphatase 76 U/L (40-110); Anion Gap 15 mmol/L (10-20); BUN (Urea Nitrogen) 8 mg/dL (9.8-20.1); Bilirubin, Total 1.1 mg/dL (0.2-1.2); Calc. Creatinine Clearance 0 mL/min (70-130); Carbon Dioxide 27 mmol/L (23-31); Chloride 100 mmol/L (98-107); Estimated GFR-MDRD 73; Globulin 2.4 g/dL (2.4-3.5); Glucose 112 mg/dL (80-115); Lipase 26 U/L (8-78); Protein, Total 6.5 g/dL (6.0-8.3); Sodium 140 mmol/L (136-145)
[2020-01-31 17:42] LABS: Potassium 2.3 mmol/L (3.5-5.1)
[2020-01-31] MEDS ORDERED: Morphine 2 MG/ML SYRINGE SLOW IVP PRN (19:07)
[2020-01-31] MEDS ORDERED: Ondansetron PF 4 MG/2 ML Vial IVP PRN (19:15)
[2020-01-31] MEDS ORDERED: Dextrose 5 %-0.45 % NaCl 1,000 ML IV SCH (19:15)
[2020-01-31] MEDS: D5 1/2 NS w/20 mEq KCL 1,000 ML IV SCH (20:00)
[2020-01-31] MEDS ORDERED: Ondansetron ODT 4 MG TAB PO PRN (20:09)
[2020-01-31] MEDS: Gabapentin 300 MG CAP PO SCH (21:21)
[2020-01-31] MEDS: Atorvastatin Calcium 10 MG TAB PO SCH (21:21)
[2020-01-31] MEDS: Ondansetron ODT 4 MG TAB SL PRN (23:57)
[2020-02-01 01:41] VITALS: BMI 18.5
[2020-02-01] MEDS: D5 1/2 NS w/20 mEq KCL 1,000 ML IV SCH ×3 (02:37→18:22)
[2020-02-01] MEDS: Morphine 4 MG/ML VIAL SLOW IVP PRN ×3 (02:41→13:57)
[2020-02-01] MEDS: Ondansetron ODT 4 MG TAB SL PRN (05:02)
[2020-02-01 06:00] LABS: Anion Gap 14 mmol/L (10-20); BUN (Urea Nitrogen) Less than 4 mg/dL (9.8-20.1); Calc. Creatinine Clearance 49 mL/min (70-130); Calcium 8.7 mg/dL (7.8-10.44); Carbon Dioxide 25 mmol/L (23-31); Chloride 103 mmol/L (98-107); Estimated GFR-MDRD 78; Glucose 176 mg/dL (80-115); Sodium 139 mmol/L (136-145)
[2020-02-01 06:07] LABS: Potassium 2.6 mmol/L (3.5-5.1)
[2020-02-01] MEDS: Pantoprazole 40 MG VIAL IVP SCH (10:09)
[2020-02-01] MEDS ORDERED: traMADol HCl 50 MG TAB PO PRN (10:14)
[2020-02-01] MEDS: Amlodipine 10 MG TAB PO SCH (10:23)
[2020-02-01] MEDS ORDERED: Potassium Chloride 20 MEQ TAB PO SCH (15:30)
[2020-02-01 16:23] LABS: Anion Gap 14 mmol/L (10-20); BUN (Urea Nitrogen) Less than 4 mg/dL (9.8-20.1); Calc. Creatinine Clearance 52 mL/min (70-130); Calcium 8.6 mg/dL (7.8-10.44); Carbon Dioxide 25 mmol/L (23-31); Chloride 103 mmol/L (98-107); Estimated GFR-MDRD 82; Glucose 177 mg/dL (80-115); Sodium 139 mmol/L (136-145)
[2020-02-01 16:37] LABS: Potassium 2.8 mmol/L (3.5-5.1)
--- NOTE | 2020-02-01 16:42 | HP ---
HISTORY OF PRESENT ILLNESS: A 69-year-old female admitted for 23-hour observation from the ER, where she presented with epigastric pain and nausea, but no vomiting onset ~ 2 weeks, normal lipase, and hypokalemia. Her initial potassium was 2.3. She has a long history of nausea and epigastric pain evidenced by multiple and frequent ER visits as far back as 2013. On 10/30/18 she was admitted for idiopathic pancreatitis with a lipase of 376, EGD and Abdominal Ultrasound were essentially negative, but her abdominal CT showed mildly dilated pancreatic duct. The epigastric pain resolved with hydration and n.p.o. status, and she was discharged home 2 days later. She was again admitted for nausea, vomiting, and epigastric pain last month on 09/10/19 with a normal lipase, and most recently on 01/13/20; her lipase was again only mildly elevated at 375, but her Abdominal CT showed a dilated pancreatic duct twice the size of that noted the year before. Her symptoms again resolved with n.p.o. and IV hydration. She does not drink alcohol and her lipids are normal, last recorded on 09/11/2019 LDL 99, TG 96, HDL 52. Over the years, she has had multiple ER visits for nausea and vomiting, going back as far as 2013, and 3 admissions in the last 12 months for the same. Her PCP is in [place], and so records are unavailable for review. History is limited due to mild dementia and she is , so possibly there is a language barrier as well as she is unable to tell me the name of any GI specialist that follows her. Her [place] is not present. PAST MEDICAL HISTORY: 1. Hypertension. 2. Mild dementia. 3. Hyperlipidemia. 4. GERD. PAST SURGICAL HISTORY: EGD on 10/31/2018, which was essentially negative. SOCIAL HISTORY: Denies alcohol. Nonsmoker. She is from [place] and she lives with her [place] of many years. ALLERGIES: NO KNOWN ALLERGIES. CODE STATUS: Full code. MEDICATIONS: 1. Loratadine 10 mg daily. 2. Pantoprazole 40 mg daily. 3. Aricept 10 mg at bedtime. 4. Tramadol 50 mg q.12h p.r.n. pain. 5. Moxifloxacin 0.5% ophthalmic solution left eye t.i.d., this was for a recent conjunctivitis. 6. Lipitor 20 mg at bedtime. 7. Amlodipine 10 mg daily. 8. Catapres topical patch 0.2 mg every 7 days. 9. Sertraline 25 mg daily. 10. Lisinopril 10 mg daily. 11. Gabapentin 300 mg p.o. at bedtime. 12. Ondansetron 4 mg ODT every 6 hours p.r.n. nausea. REVIEW OF SYSTEMS: Negative 12-point review of systems except for what is mentioned above in the HPI. PHYSICAL EXAMINATION: VITAL SIGNS: 148/83 blood pressure, temperature 97.5, pulse 79, respirations 18, 99% on room air. She is small stature and weighs 95 pounds. GENERAL: Alert, oriented, mild forgetfulness. She is oriented x3. HEENT: Atraumatic, normocephalic. EOMs intact. PERRLA bilaterally. Conjunctiva clear. No discharge. Moist mucous membranes. NECK: Supple. No mass palpated. No bruits auscultated. No thyromegaly. No JVD. CHEST: Clear to auscultation bilaterally without rales or wheezes. HEART: Regular rate and rhythm without murmur, rubs, or gallops. ABDOMEN: Soft. Normal bowel sounds. No mass or megaly. Tender epigastrium. No CVA tenderness. EXTREMITIES: No edema. NEUROLOGICAL: Normal CN 2 through 12 intact. Normal motor function. LABORATORY DATA: Her CBC; WBC 6.5, H and H 11.7 and 37.9, platelets are 262. Her admission potassium was 2.3, sodium 140, chloride 100. Her repeat potassium this morning was 2.6, creatinine 0.74, glucose was 112, and her calcium is 8.7. Troponin-I was negative. Her lipase was 26 upon admission. ASSESSMENT AND PLAN: 1. Epigastric pain with nausea. 2. Hypokalemia. 3. History of pancreatitis. 4. Hypertension. 5. Dementia. Hydrate with half-normal saline with 20 of KCl per L. Repeat basic metabolic to evaluate potassium at 4 o'clock later this afternoon to determine whether or not the patient will be discharged later this afternoon. Advance to clear liquid. Job ID: [id number] [facility]
[2020-02-01] MEDS ORDERED: Metoclopramide HCl 10 MG/2 ML VIAL IVP PRN (16:54)
[2020-02-01] MEDS ORDERED: 1/2 NS w/KCL 20 mEq 1,000 ML IV SCH (17:15)
[2020-02-01 17:23] LABS: SARS-CoV-2 MS2 Positive; SARS-CoV-2 N Gene Negative; SARS-CoV-2 S Gene Negative; SARS-CoV-2 by NAA Not Detected (NotDetected); SARS-CoV-2 orf1ab Negative
[2020-02-01] MEDS: OPTH L EYE SCH ×2 (17:59→20:25)
[2020-02-01] MEDS: Lisinopril 10 MG TAB PO SCH (17:59)
[2020-02-01] MEDS: MOXIFLOXACIN 0.5% L EYE SCH ×2 (17:59→20:25)
[2020-02-01] MEDS: D5 0.9% NS w/ 20 mEq KCl 1,000 ML IV SCH (18:12)
[2020-02-01] MEDS: Gabapentin 300 MG CAP PO SCH (20:24)
[2020-02-01] MEDS: Atorvastatin Calcium 10 MG TAB PO SCH (20:24)
[2020-02-01] MEDS ORDERED: Donepezil HCl 10 MG TAB PO SCH (21:00)
[2020-02-02] MEDS: D5 0.9% NS w/ 20 mEq KCl 1,000 ML IV SCH (03:55)
[2020-02-02 04:27] LABS: #Basophils 0.1 thou/uL (0.0-0.2); #Eosinphils 0.2 thou/uL (0.0-0.7); #Lymphocytes 2.4 thou/uL (1.20-3.40); #Monocytes 0.4 thou/uL (0.11-0.59); #Neutrophils 3.2 thou/uL (1.40-6.50); %Basophils 1.4 % (0.0-1.0); %Eosinophils 3.6 % (0.0-10.0); %Monocytes 6.2 % (0.0-10.0); %Neutrophils 50.8 % (42.0-75.0); Hemoglobin 11.8 g/dL (12.0-16.0); Mean Corpuscular HGB CONC 31.2 g/dL (32.0-36.0); Mean Corpuscular Hemoglobin 31.4 pg (27.0-31.0); Mean Platelet Volume 6.5 fL (7.4-10.4); Platelet Count 270 thou/uL (130-400); RBC Distribution Width 13.2 % (11.5-14.5); Red Blood Cell (RBC) Count 3.74 mill/uL (4.20-5.40); White Blood Cell (WBC) Count 6.3 thou/uL (4.8-10.8)
[2020-02-02 04:50] LABS: Anion Gap 15 mmol/L (10-20); BUN (Urea Nitrogen) Less than 4 mg/dL (9.8-20.1); Calc. Creatinine Clearance 51 mL/min (70-130); Calcium 8.8 mg/dL (7.8-10.44); Carbon Dioxide 21 mmol/L (23-31); Chloride 112 mmol/L (98-107); Estimated GFR-MDRD 81; Glucose 133 mg/dL (80-115); Potassium 3.8 mmol/L (3.5-5.1); Sodium 144 mmol/L (136-145)
[2020-02-02] MEDS ORDERED: Loratadine 10 MG TAB PO SCH (09:00)
[2020-02-02] MEDS ORDERED: Metoclopramide HCl 10 MG/2 ML VIAL IVP SCH (09:45)
[2020-02-02] MEDS: Amlodipine 10 MG TAB PO SCH (09:55)
[2020-02-02] MEDS: Lisinopril 10 MG TAB PO SCH (09:55)
[2020-02-02] MEDS: MOXIFLOXACIN 0.5% L EYE SCH (09:57)
[2020-02-02] MEDS: OPTH L EYE SCH (09:57)
[2020-02-02] MEDS: Pantoprazole 40 MG VIAL IVP SCH (10:13)
[2020-02-02 12:23] VITALS: BP 160/70; TEMP 98.2
--- NOTE | 2020-02-02 23:20 | DIS ---
DATE OF ADMISSION: 01/31/2020 DATE OF DISCHARGE: 02/02/2020 DISCHARGE DIAGNOSES: Nausea with epigastric pain, hypokalemia- corrected. DISPOSITION: Home with her . BRIEF COURSE: 69-year-old female admitted for nausea and epigastric pain onset 1-2 weeks with initial potassium of 2.3, normal lipase. She denies associated vomiting or diarrhea. This is her fourth related admission since October of 2018. During that admission, she was diagnosed with idiopathic pancreatitis, lipase 376. Please see my H and P for a summary of her past admissions. During the course of her two night stay, her potassium was corrected to 3.8, but she continues to complain of nausea and belches frequently. She was n.p.o. for 24 hours and then advanced slowly to a clear liquid. This morning she was advanced to full liquid diet, and has had no emesis while here. She was given 10 mg metoclopramide IV prior to discharge, and sent home with prescriptions for oral potassium chloride 20 mEq b.i.d. and metoclopramide 10 mg t.i.d. p.r.n. for nausea. She was advised to trial AC to see if this prevents nausea related to po intake. Her is present and provides additional pertinent history. She has evidently been followed by [facility], Dr. Cota, who has prescribed Creon, however, she has not filled this prescription due to cost. Her PCP is Dr. Hu. DIET/ACTIVITY: As tolerated. ALLERGIES: NO KNOWN ALLERGIES. CODE STATUS: Full. FOLLOWUP: PCP is Dr. Hu in [place] and [place]. Cota. Job ID: [id number] [facility]
[2020-02-03] MEDS ORDERED: cloNIDine 0.2mg/24 Hour PATCH TD SCH (09:00)
== END 2020-02-02 11:30 | disposition home or self-care (01) | DRG 392 ==
LOC: BURERS 16:39 → UNDOADMOB 18:28 → BURMED 18:28 → OBSVTOIN 02-01 19:40 → INTOOBSV 02-01 19:40
PROVIDERS: ADMIT Family Medicine; ATTEND Family Medicine
DX: R10.13 Epigastric pain (principal); K86.1 Other chronic pancreatitis; I10 Essential (primary) hypertension; K21.9 Gastro-esophageal reflux disease without esophagitis; F32.9 Major depressive disorder, single episode, unspecified; K27.9 Peptic ulcer, site unspecified, unspecified as acute or chronic, without hemorrhage or perforation; F03.90 Unspecified dementia, unspecified severity, without behavioral disturbance, psychotic disturbance, mood disturbance, and anxiety; E78.5 Hyperlipidemia, unspecified; E87.6 Hypokalemia; R11.0 Nausea; Z20.828 Contact with and (suspected) exposure to other viral communicable diseases
CPT/HCPCS: 36415; 80048; 80053; 83605; 83690; 84484; 85025; 87635; 94760; 96361; 96365; 96375; 96376; C9113; G0378; J2270; J2405; J2765; J3480; Q0162; U0003

== ENCOUNTER 2020-04-12 11:06 | Emergency (ER) | payer MEDICARE, OTHER ==
[~2020-04-12 11:06] MED LIST changes: -Fentanyl 100 MCG/2 ML VIAL ONE; -Glycopyrrolate 0.4 MG/ 2 ML VIAL ONE; +Iopamidol 370 76% 100 ML VIAL ONE; -Lidocaine Viscous Sol 2% 15 ml UD Cup ONE; -Mag-Al Plus 1200 MG/1200 MG/120 MG/30 ML UDCUP ONE; -Ondansetron PF 4 MG/2 ML Vial ONE
[2020-04-12 12:45] LABS: #Basophils 0.1 thou/uL (0.0-0.2); #Eosinphils 0.2 thou/uL (0.0-0.7); #Monocytes 0.5 thou/uL (0.11-0.59); #Neutrophils 4.5 thou/uL (1.40-6.50); %Basophils 0.9 % (0.0-1.0); %Lymphocytes 27.9 % (21.0-51.0); %Monocytes 7.1 % (0.0-10.0); %Neutrophils 61.1 % (42.0-75.0); Hemoglobin 10.7 g/dL (12.0-16.0); Mean Corpuscular HGB CONC 31.9 g/dL (32.0-36.0); Mean Corpuscular Hemoglobin 32.4 pg (27.0-31.0); Mean Platelet Volume 7.1 fL (7.4-10.4); Platelet Count 217 thou/uL (130-400); RBC Distribution Width 13.2 % (11.5-14.5); Red Blood Cell (RBC) Count 3.29 mill/uL (4.20-5.40); White Blood Cell (WBC) Count 7.3 thou/uL (4.8-10.8)
[2020-04-12 12:59] LABS: ALT (SGPT) 28 U/L (8-55); AST (SGOT) 15 U/L (5-34); Albumin 3.5 g/dL (3.4-4.8); Alkaline Phosphatase 63 U/L (40-110); Anion Gap 11 mmol/L (10-20); BUN (Urea Nitrogen) 19 mg/dL (9.8-20.1); Bilirubin, Total 0.4 mg/dL (0.2-1.2); Calc. Creatinine Clearance 0 mL/min (70-130); Calcium 8.7 mg/dL (7.8-10.44); Carbon Dioxide 28 mmol/L (23-31); Chloride 101 mmol/L (98-107); Globulin 2.3 g/dL (2.4-3.5); Glucose 111 mg/dL (80-115); Lipase 75 U/L (8-78); Protein, Total 5.8 g/dL (6.0-8.3); Sodium 136 mmol/L (136-145)
--- NOTE | 2020-04-12 13:06 | CT ---
CT OF THE ABDOMEN AND PELVIS WITH IV CONTRAST INDICATION: Vomiting COMPARISON: CT the abdomen and pelvis with contrast dated January 27, 2020 FINDINGS: ABDOMEN: Lung bases: Clear Liver: No focal lesion. Gallbladder: Normal appearing. Pancreas: Stable mild dilatation the main pancreatic duct. Adrenal glands: Normal. Spleen: Normal. Kidneys and ureters: Normal. No hydronephrosis. Vasculature: There are mild vascular calcifications seen involving the visualized vasculature. Lymph nodes:No lymphadenopathy. Free fluid in abdomen:No free fluid is evident. PELVIS: Small and large bowel: There is a mild amount retained stool within the colon. Small bowel is of norm al caliber. The visualized stomach appears within normal limits. Appendix:Normal Bladder: Normal. Rectal and perirectal soft tissues:Normal. Reproductive structures: Normal. Free fluid in pelvis: No free fluid is evident. Lymphadenopathy pelvis: No lymphadenopathy is evident. Osseous structures: There is diffuse osteopenia. No acute fracture is evident. There is scattered de generative and osteoarthritic changes. Soft tissues:Normal. IMPRESSION: 1. No acute abnormality.
[2020-04-12] MEDS ORDERED: Morphine 4 MG/ML VIAL ONE (13:13)
[2020-04-12] MEDS ORDERED: Promethazine HCl 25 MG/ML VIAL ONE (13:29)
[2020-04-12] MEDS ORDERED: Promethazine HCl 25 MG/ML VIAL SLOW IVP SCH (13:30)
== END 2020-04-12 14:12 | disposition home or self-care (01) ==
LOC: BURERS 11:06
DX: R11.10 Vomiting, unspecified (principal); R10.9 Unspecified abdominal pain; E78.5 Hyperlipidemia, unspecified; I10 Essential (primary) hypertension; Z79.899 Other long term (current) drug therapy
CPT/HCPCS: 36415; 74177; 80053; 83605; 83690; 84484; 85025; 93005; 96374; 96375; J2270; J2550; Q9967

== ENCOUNTER 2020-05-22 14:55 | Emergency (ER) | payer MEDICARE, OTHER ==
[2020-05-22] MEDS ORDERED: diphenhydrAMINE 50 MG/ML VIAL ONE (15:26)
[2020-05-22] MEDS ORDERED: Promethazine HCl 25 MG/ML VIAL ONE (15:26)
[2020-05-22 15:59] LABS: #Basophils 0.1 thou/uL (0.0-0.2); #Eosinphils 0.1 thou/uL (0.0-0.7); #Monocytes 0.4 thou/uL (0.11-0.59); #Neutrophils 4.3 thou/uL (1.40-6.50); %Basophils 0.8 % (0.0-1.0); %Eosinophils 1.8 % (0.0-10.0); %Lymphocytes 28.9 % (21.0-51.0); %Monocytes 5.7 % (0.0-10.0); %Neutrophils 62.9 % (42.0-75.0); Hemoglobin 11.9 g/dL (12.0-16.0); Mean Corpuscular HGB CONC 32.3 g/dL (32.0-36.0); Mean Platelet Volume 7.1 fL (7.4-10.4); Platelet Count 257 thou/uL (130-400); RBC Distribution Width 13.5 % (11.5-14.5); Red Blood Cell (RBC) Count 3.61 mill/uL (4.20-5.40); White Blood Cell (WBC) Count 6.9 thou/uL (4.8-10.8)
[2020-05-22 16:09] LABS: ALT (SGPT) 22 U/L (8-55); AST (SGOT) 21 U/L (5-34); Alkaline Phosphatase 81 U/L (40-110); Anion Gap 13 mmol/L (10-20); BUN (Urea Nitrogen) 14 mg/dL (9.8-20.1); Bilirubin, Total 0.4 mg/dL (0.2-1.2); Calc. Creatinine Clearance 0 mL/min (70-130); Calcium 9.1 mg/dL (7.8-10.44); Carbon Dioxide 26 mmol/L (23-31); Chloride 104 mmol/L (98-107); Globulin 2.6 g/dL (2.4-3.5); Glucose 232 mg/dL (80-115); Lipase 63 U/L (8-78); Potassium 4.4 mmol/L (3.5-5.1); Protein, Total 6.6 g/dL (5.8-8.1); Sodium 139 mmol/L (136-145)
== END 2020-05-22 16:00 | disposition left against medical advice (07) ==
LOC: BURERS 14:55
DX: R11.2 Nausea with vomiting, unspecified (principal); K21.9 Gastro-esophageal reflux disease without esophagitis; E78.5 Hyperlipidemia, unspecified; E78.00 Pure hypercholesterolemia, unspecified; E78.1 Pure hyperglyceridemia; I10 Essential (primary) hypertension; Z79.899 Other long term (current) drug therapy
CPT/HCPCS: 80053; 83690; 85025; 96374; 96375; J1200; J2550

== ENCOUNTER 2020-07-16 12:30 | Outpatient (CLI) | payer MEDICARE, OTHER | END 2020-07-16 12:31 | disposition home or self-care (01) | LOC: BURRAD 12:30 | PROVIDERS: ATTEND Physician Assistant | DX: M54.42 Lumbago with sciatica, left side (principal); M54.41 Lumbago with sciatica, right side; G89.29 Other chronic pain; K59.00 Constipation, unspecified | CPT/HCPCS: 72100 ==

== ENCOUNTER 2020-07-17 15:48 | Emergency (ER) | payer MEDICARE, OTHER ==
[2020-07-17] MEDS ORDERED: Ondansetron PF 4 MG/2 ML Vial ONE (16:06)
[2020-07-17 16:39] LABS: #Eosinphils 0.2 thou/uL (0.0-0.7); #Lymphocytes 1.6 thou/uL (1.20-3.40); #Monocytes 0.4 thou/uL (0.11-0.59); #Neutrophils 4.1 thou/uL (1.40-6.50); %Basophils 0.8 % (0.0-1.0); %Eosinophils 2.5 % (0.0-10.0); %Lymphocytes 25.3 % (21.0-51.0); %Monocytes 6.8 % (0.0-10.0); %Neutrophils 64.7 % (42.0-75.0); Hemoglobin 10.6 g/dL (12.0-16.0); Mean Corpuscular HGB CONC 30.8 g/dL (32.0-36.0); Mean Corpuscular Hemoglobin 31.9 pg (27.0-31.0); Mean Platelet Volume 6.5 fL (7.4-10.4); Platelet Count 242 thou/uL (130-400); RBC Distribution Width 12.7 % (11.5-14.5); Red Blood Cell (RBC) Count 3.32 mill/uL (4.20-5.40); White Blood Cell (WBC) Count 6.4 thou/uL (4.8-10.8)
[2020-07-17 16:52] LABS: ALT (SGPT) 17 U/L (8-55); AST (SGOT) 14 U/L (5-34); Albumin 3.4 g/dL (3.4-4.8); Alkaline Phosphatase 64 U/L (40-110); Anion Gap 12 mmol/L (10-20); BUN (Urea Nitrogen) 15 mg/dL (9.8-20.1); Bilirubin, Total 0.4 mg/dL (0.2-1.2); Calc. Creatinine Clearance 0 mL/min (70-130); Calcium 8.2 mg/dL (7.8-10.44); Carbon Dioxide 28 mmol/L (23-31); Chloride 101 mmol/L (98-107); Globulin 2.3 g/dL (2.4-3.5); Glucose 186 mg/dL (80-115); Lipase 138 U/L (8-78); Potassium 3.5 mmol/L (3.5-5.1); Protein, Total 5.7 g/dL (5.8-8.1); Sodium 137 mmol/L (136-145)
== END 2020-07-17 15:56 | disposition home or self-care (01) ==
LOC: BURERS 15:48
DX: K86.1 Other chronic pancreatitis (principal); K21.9 Gastro-esophageal reflux disease without esophagitis; R11.2 Nausea with vomiting, unspecified; E78.2 Mixed hyperlipidemia; I10 Essential (primary) hypertension; F03.90 Unspecified dementia, unspecified severity, without behavioral disturbance, psychotic disturbance, mood disturbance, and anxiety; Z79.899 Other long term (current) drug therapy
CPT/HCPCS: 71045; 80053; 83690; 84484; 85025; 93005; 94760; 96374; J2405

== ENCOUNTER 2020-10-03 14:59 | Emergency (ER) | payer MEDICARE, OTHER ==
[2020-10-03 15:39] LABS: #Basophils 0.1 thou/uL (0.0-0.2); #Eosinphils 0.1 thou/uL (0.0-0.7); #Lymphocytes 1.9 thou/uL (1.20-3.40); #Monocytes 0.5 thou/uL (0.11-0.59); #Neutrophils 4.5 thou/uL (1.40-6.50); %Basophils 1.2 % (0.0-1.0); %Eosinophils 1.8 % (0.0-10.0); %Lymphocytes 26.8 % (21.0-51.0); %Monocytes 7.2 % (0.0-10.0); Hemoglobin 11.9 g/dL (12.0-16.0); Mean Corpuscular HGB CONC 31.5 g/dL (32.0-36.0); Mean Corpuscular Hemoglobin 31.8 pg (27.0-31.0); Mean Platelet Volume 6.4 fL (7.4-10.4); Platelet Count 245 thou/uL (130-400); RBC Distribution Width 12.9 % (11.5-14.5); Red Blood Cell (RBC) Count 3.76 mill/uL (4.20-5.40); White Blood Cell (WBC) Count 7.2 thou/uL (4.8-10.8)
[2020-10-03 15:54] LABS: ALT (SGPT) 20 U/L (8-55); AST (SGOT) 18 U/L (5-34); Albumin 3.9 g/dL (3.4-4.8); Alkaline Phosphatase 66 U/L (40-110); Anion Gap 14 mmol/L (10-20); BUN (Urea Nitrogen) 21 mg/dL (9.8-20.1); Bilirubin, Total 0.5 mg/dL (0.2-1.2); Calc. Creatinine Clearance 0 mL/min (70-130); Calcium 8.9 mg/dL (7.8-10.44); Carbon Dioxide 27 mmol/L (23-31); Chloride 104 mmol/L (98-107); Globulin 2.7 g/dL (2.4-3.5); Glucose 184 mg/dL (80-115); Lipase 215 U/L (8-78); Potassium 3.9 mmol/L (3.5-5.1); Protein, Total 6.6 g/dL (5.8-8.1); Sodium 141 mmol/L (136-145)
[2020-10-03] MEDS ORDERED: Promethazine HCl 25 MG/ML VIAL ONE (16:03)
== END 2020-10-03 16:55 | disposition home or self-care (01) ==
LOC: BURERS 14:59
DX: K86.1 Other chronic pancreatitis (principal); K21.9 Gastro-esophageal reflux disease without esophagitis; E78.2 Mixed hyperlipidemia; I10 Essential (primary) hypertension; F03.90 Unspecified dementia, unspecified severity, without behavioral disturbance, psychotic disturbance, mood disturbance, and anxiety; Z79.899 Other long term (current) drug therapy
CPT/HCPCS: 80053; 83690; 84484; 85025; 93005; 96365; J2550

== ENCOUNTER 2021-03-09 16:10 | Emergency (ER) | payer MEDICARE, OTHER ==
[2021-03-09 16:47] LABS: #Basophils 0.1 thou/uL (0.0-0.2); #Eosinphils 0.6 thou/uL (0.0-0.7); #Lymphocytes 1.5 thou/uL (1.20-3.40); #Monocytes 0.7 thou/uL (0.11-0.59); #Neutrophils 7.1 thou/uL (1.40-6.50); %Basophils 0.8 % (0.0-1.0); %Eosinophils 5.9 % (0.0-10.0); %Lymphocytes 15.2 % (21.0-51.0); %Monocytes 6.7 % (0.0-10.0); %Neutrophils 71.4 % (42.0-75.0); Mean Corpuscular Hemoglobin 32.8 pg (27.0-31.0); Mean Corpuscular Volume 96.4 fL (78.0-98.0); Mean Platelet Volume 6.4 fL (7.4-10.4); Platelet Count 323 thou/uL (130-400); RBC Distribution Width 12.4 % (11.5-14.5); Red Blood Cell (RBC) Count 3.35 mill/uL (4.20-5.40)
[2021-03-09] MEDS ORDERED: Ondansetron PF 4 MG/2 ML Vial ONE (16:55)
[2021-03-09] MEDS ORDERED: Pantoprazole 40 MG VIAL ONE (16:55)
[2021-03-09 17:06] LABS: ALT (SGPT) 22 U/L (8-55); AST (SGOT) 16 U/L (5-34); Albumin 3.5 g/dL (3.4-4.8); Alkaline Phosphatase 89 U/L (40-110); Anion Gap 15 mmol/L (10-20); BUN (Urea Nitrogen) 25 mg/dL (9.8-20.1); Bilirubin, Total 0.3 mg/dL (0.2-1.2); Calc. Creatinine Clearance 0 mL/min (70-130); Calcium 9.4 mg/dL (7.8-10.44); Carbon Dioxide 25 mmol/L (23-31); Chloride 103 mmol/L (98-107); Globulin 2.9 g/dL (2.4-3.5); Glucose 161 mg/dL (80-115); Lipase 125 U/L (8-78); Potassium 4.5 mmol/L (3.5-5.1); Protein, Total 6.4 g/dL (5.8-8.1); Sodium 138 mmol/L (136-145)
[2021-03-09 17:08] LABS: Bilirubin Negative (Negative); Blood, Urine Negative (Negative); Clarity Clear (Clear); Glucose, Urine (Dipstick) Negative (Negative); Ketone, Urine Negative (Negative); Leukocyte Negative (Negative); Nitrite Negative (Negative); Protein, Urine (Dipstick) Negative (Neg-Trace); Specific Gravity, Urine 1.015 (1.005-1.030); Urobilinogen 0.2 mg/dL (Less than 2); pH, Urine 5.5 (5.0-9.0)
[2021-03-09] MEDS ORDERED: Aspirin Chewable 81 MG TAB ONE (18:04)
[2021-03-10 12:06] LABS: SARS-CoV-2 PCR by NAA Not Detected (NotDetected)
== END 2021-03-09 18:37 | disposition home or self-care (01) ==
LOC: BURERS 16:10
DX: K85.90 Acute pancreatitis without necrosis or infection, unspecified (principal); I10 Essential (primary) hypertension; E78.5 Hyperlipidemia, unspecified; K21.9 Gastro-esophageal reflux disease without esophagitis; Z79.899 Other long term (current) drug therapy; Z20.822 Contact with and (suspected) exposure to COVID-19
CPT/HCPCS: 71045; 74177; 80053; 81003; 83690; 84484; 85025; 93005; 96374; 96375; C9113; J2405; U0003; U0005

== ENCOUNTER 2022-02-02 12:06 | Emergency (ER) | payer MEDICARE, OTHER ==
[2022-02-02] MEDS ORDERED: Iopamidol 370 76% 100 ML VIAL FS ONE (12:07)
[2022-02-02] MEDS ORDERED: Famotidine/PF 20 mg/2ml Vial ONE (12:37)
[2022-02-02] MEDS ORDERED: Ondansetron PF 4 MG/2 ML Vial ONE (12:37)
[2022-02-02 12:39] LABS: #Eosinphils 0.3 thou/uL (0.0-0.7); #Lymphocytes 1.2 thou/uL (1.20-3.40); #Monocytes 0.7 thou/uL (0.11-0.59); #Neutrophils 11.5 thou/uL (1.40-6.50); %Basophils 0.3 % (0.0-1.0); %Eosinophils 1.9 % (0.0-10.0); %Lymphocytes 8.9 % (21.0-51.0); %Monocytes 5.2 % (0.0-10.0); %Neutrophils 83.8 % (42.0-75.0); Hemoglobin 12.8 g/dL (12.0-16.0); Mean Corpuscular HGB CONC 31.4 g/dL (32.0-36.0); Mean Corpuscular Hemoglobin 31.7 pg (27.0-31.0); Mean Platelet Volume 7.2 fL (7.4-10.4); Platelet Count 350 thou/uL (130-400); Red Blood Cell (RBC) Count 4.05 mill/uL (4.20-5.40); White Blood Cell (WBC) Count 13.7 thou/uL (4.8-10.8)
[2022-02-02 12:59] LABS: ALT (SGPT) 13 U/L (8-55); AST (SGOT) 15 U/L (5-34); Alkaline Phosphatase 103 U/L (40-110); Anion Gap 12 mmol/L (10-20); BUN (Urea Nitrogen) 13 mg/dL (9.8-20.1); Bilirubin, Total 0.5 mg/dL (0.2-1.2); Calc. Creatinine Clearance 0 mL/min (70-130); Calcium 9.6 mg/dL (7.8-10.44); Carbon Dioxide 26 mmol/L (23-31); Chloride 101 mmol/L (98-107); Estimated GFR 62; Globulin 3.2 g/dL (2.4-3.5); Glucose 194 mg/dL (80-115); Lipase 34 U/L (8-78); Potassium 3.4 mmol/L (3.5-5.1); Protein, Total 7.2 g/dL (5.8-8.1); Sodium 136 mmol/L (136-145)
[2022-02-02 13:12] LABS: Bilirubin Small (Negative); Blood, Urine Trace (Negative); Clarity Slightly Cloudy (Clear); Glucose, Urine (Dipstick) 250 mg/dL (Negative); Ketone, Urine Trace mg/dL (Negative); Leukocyte Negative (Negative); Nitrite Negative (Negative); Protein, Urine (Dipstick) 100 mg/dL (Neg-Trace); Urobilinogen 0.2 mg/dL (Less than 2); pH, Urine 5.5 (5.0-9.0)
[2022-02-02 13:38] LABS: Bacteria/HPF 1+ HPF (None Seen); Mucous/LPF Few LPF (<2+); RBC/HPF 0-3 HPF (0-3); Squamous Epithelial 0-3 HPF (0-3); WBC/HPF None Seen HPF (0-3)
== END 2022-02-02 15:05 | disposition home or self-care (01) ==
LOC: BURERS 12:06
DX: K29.00 Acute gastritis without bleeding (principal); N83.291 Other ovarian cyst, right side; K21.9 Gastro-esophageal reflux disease without esophagitis; E78.2 Mixed hyperlipidemia; I10 Essential (primary) hypertension
CPT/HCPCS: 74177; 80053; 81003; 81015; 83690; 85025; 96365; 96375; J2405; Q9967; S0028

== ENCOUNTER 2022-05-06 10:43 | Emergency (ER) | payer MEDICARE ==
[2022-05-06] MEDS ORDERED: Boostrix 0.5 ML (Tdap) VIAL (>/=7 yrs of age) ONE (11:15)
== END 2022-05-06 11:26 | disposition home or self-care (01) ==
LOC: BURERS 10:43
DX: T23.272A Burn of second degree of left wrist, initial encounter (principal); K21.9 Gastro-esophageal reflux disease without esophagitis; E78.5 Hyperlipidemia, unspecified; E78.00 Pure hypercholesterolemia, unspecified; I10 Essential (primary) hypertension; Z23 Encounter for immunization; Y93.G3 Activity, cooking and baking
CPT/HCPCS: 90471; 90715

== ENCOUNTER 2022-05-10 11:28 | Emergency (ER) | payer MEDICARE | END 2022-05-10 13:12 | disposition home or self-care (01) | LOC: BURERS 11:28 | DX: T23.272D Burn of second degree of left wrist, subsequent encounter (principal); T31.0 Burns involving less than 10% of body surface; I10 Essential (primary) hypertension; E78.00 Pure hypercholesterolemia, unspecified; K21.9 Gastro-esophageal reflux disease without esophagitis; X10.2XXD Contact with fats and cooking oils, subsequent encounter | CPT/HCPCS: 99282 ==